=== PATIENT | female | born 1960 | race Caucasian/White ===

== ENCOUNTER 2020-11-21 10:07 | Emergency (ER) | payer OTHER, BC ==
[~2020-11-21 10:07] MED LIST: DICLOFENAC SODI50 MG; LORTAB 5 OR; METHOCARBAMOL500 MG
[2020-11-21] MEDS ORDERED: FLEXERIL5 M1 PO (12:38)
[2020-11-21] MEDS ORDERED: IBUPROFEN600 MG PO (12:38)
[2020-11-21 12:42] VITALS: BP 118/78
== END 2020-11-21 12:45 | disposition home or self-care (01) | DRG 605 ==
LOC: ED 10:07
DX: S40.012A Contusion of left shoulder, initial encounter (principal); S16.1XXA Strain of muscle, fascia and tendon at neck level, initial encounter; W20.8XXA Other cause of strike by thrown, projected or falling object, initial encounter; Y92.89 Other specified places as the place of occurrence of the external cause; Y99.0 Civilian activity done for income or pay

== ENCOUNTER 2024-02-04 10:36 | Emergency (ER) | payer MEDICARE ==
[~2024-02-04] VITALS: Ht 177.8 cm; Wt 68.9 kg
[2024-02-04] VITALS (14 sets, daily range): BP systolic 109–139; BP diastolic 66–84
[~2024-02-04 10:36] MED LIST changes: +FLEXERIL5 M1 PO; +IBUPROFEN600 MG PO
[2024-02-04] MEDS ORDERED: diazePAM 10 MG/2 ML VIAL IM ONE (11:00)
[2024-02-04] MEDS ORDERED: KETOROLAC TROMETHAMINE 30 MG/ML SDV IM ONE (11:00)
[2024-02-04] MEDS ORDERED: predniSONE 20 MG/TAB PO ONE (11:00)
[2024-02-04] MEDS ORDERED: OMEPRAZOLE DR40 MG (11:06)
[2024-02-04] MEDS ORDERED: CYCLOBENZAPRINE10 MG PO (14:11)
[2024-02-04] MEDS ORDERED: NAPROXEN500 MG PO (14:11)
[2024-02-04] MEDS ORDERED: PREDNISONE10 MG PO (14:11)
== END 2024-02-04 14:20 | disposition home or self-care (01) ==
LOC: ED 10:36
DX: M47.22 Other spondylosis with radiculopathy, cervical region (principal); S39.012A Strain of muscle, fascia and tendon of lower back, initial encounter; X58.XXXA Exposure to other specified factors, initial encounter

== ENCOUNTER 2024-04-27 10:08 | Emergency (ER) | payer MEDICARE ==
[~2024-04-27] VITALS: Ht 177.8 cm; Wt 64.0 kg
[2024-04-27] VITALS (13 sets, daily range): BP systolic 115–156; BP diastolic 64–92
[~2024-04-27 10:08] MED LIST changes: +CYCLOBENZAPRINE10 MG PO; +NAPROXEN500 MG PO; +OMEPRAZOLE DR40 MG; +PREDNISONE10 MG PO
[2024-04-27] MEDS ORDERED: SODIUM CHLORIDE 0.9% 1,000 ML IV ONE (10:20)
[2024-04-27 11:01] LABS: BASO% 0.6 % (0-3); HEMATOCRIT 39.4 % (37.0-47.0); HEMOGLOBIN 13.3 g/dl (12.0-16.0); IMMATURE GRANULOCYTES 0.2 % (0.0-5.0); LYMPH% 23.1 % (15-41); MEAN CELL VOLUME 94.7 fL CALC (80.0-100.0); MEAN CORPUSCULAR HGB CONC 33.8 g/dL CAL (32.0-36.0); NEUT# 3.48 thou/uL (2.00-7.15); NEUT% 69.1 % (42-76); RED BLOOD COUNT 4.16 mill/uL (4.20-5.60); RED CELL DISTRI WIDTH 11.9 % (11.5-15.5)
[2024-04-27 11:18] LABS: ALBUMIN 4.6 g/dL (3.2-5.0); ALKALINE PHOSPHATASE 39 u/l (38-126); ANION GAP 11 (6-22 (CALC)); BILIRUBIN, TOTAL 0.8 mg/dL (0.02-1.3); BUN 15 mg/dL (8-23); BUN/CREATININE RATIO 26 (12-20 (CALC)); CARBON DIOXIDE 25 mmol/l (22-30); CHLORIDE 102 mmol/l (95-108); CREATININE 0.6 mg/dL (0.5-1.0); ESTIMATED GFR 100 ML/MIN (>=90 (CALC)); POTASSIUM 4.6 mmol/l (3.5-5.1); SGOT/AST 24 u/l (9-36); SODIUM 132 mmol/l (137-146); TOTAL PROTEIN 7.7 g/dL (6.3-8.2)
[2024-04-27 11:47] LABS: TSH, 3RD GENERATION 0.75 uIU/mL (0.47 - 4.68)
[2024-04-27] MEDS ORDERED: MECLIZINE HYDRO25 M1 PO (13:05)
== END 2024-04-27 13:20 | disposition home or self-care (01) ==
LOC: ED 10:08
PROVIDERS: Family Medicine
DX: R42 Dizziness and giddiness (principal); R53.83 Other fatigue